=== PATIENT | female | born 1980 | race Caucasian/White ===

== ENCOUNTER 2024-11-18 03:33 | Emergency (ER) | payer OTHER ==
[2024-11-18 03:56] VITALS: RESP 18
--- NOTE | 2024-11-18 03:58 | ED ---
Abdominal Pain HPI - General Chief Complaint: Abdominal Pain Stated Complaint: ABD Pain Time Seen by Provider: 11/18/24 03:57 Source: EMS, RN notes reviewed, old records reviewed Mode of arrival: EMS Limitations: no limitations - History of Present Illness Initial Comments: This is a 44-year-old female to the ER for evaluation abdominal pain patient has severe abdominal pain here in the ER does suffer from restless leg syndrome coming in from [place] where she has been unable to take her Requip, patient is very antsy running around the room with severe anxiety and stress due to restless leg MD Complaint: abdominal pain -: days(s) Location: epigastric, suprapubic Radiation: epigastric, suprapubic Migration to: epigastric, suprapubic Severity: moderate Severity scale (1-10): 5 Quality: sharp Consistency: constant Improves With: nothing Associated Symptoms: denies other symptoms Treatments Prior to Arrival: other (0) - Related Data Allergies Allergy/AdvReac Type Severity Reaction Status Date / Time lorazepam [From Ativan] AdvReac Hallucinati Verified 11/18/24 03:41 ons prochlorperazine AdvReac Hallucinati Verified 11/18/24 03:41 [From Compazine] ons Review of Systems ROS Statement: Those systems with pertinent positive or pertinent negative responses have been documented in the HPI. ROS Other: All systems not noted in ROS Statement are negative. Past Medical History Past Surgical History: Hysterectomy General Exam General appearance: alert, in no apparent distress Head exam: Present: atraumatic, normocephalic, normal inspection Eye exam: Present: normal appearance, PERRL, EOMI. Absent: scleral icterus, conjunctival injection, periorbital swelling ENT exam: Present: normal exam, mucous membranes moist Neck exam: Present: normal inspection. Absent: tenderness, meningismus, lymphadenopathy Respiratory exam: Present: normal lung sounds bilaterally. Absent: respiratory distress, wheezes, rales, rhonchi, stridor Cardiovascular Exam: Present: regular rate, normal rhythm, normal heart sounds. Absent: systolic murmur, diastolic murmur, rubs, gallop, clicks GI/Abdominal exam: Present: soft, normal bowel sounds. Absent: distended, tende rness, guarding, rebound, rigid Extremities exam: Present: normal inspection, full ROM, normal capillary refill. Absent: tenderness, pedal edema, joint swelling, calf tenderness Back exam: Present: normal inspection Neurological exam: Present: alert, oriented X3, CN II-XII intact Psychiatric exam: Present: normal affect, normal mood Skin exam: Present: warm, dry, intact, normal color. Absent: rash Course Vital Signs 11/18/24 11/18/24 03:34 06:07 Temperature 98.5 F 98.3 F Pulse Rate 115 H 99 Respiratory 18 18 Rate Blood Pressure 177/118 142/92 O2 Sat by Pulse 97 95 Oximetry - Reevaluation(s) Reevaluation #1: 11/18/24 04:13 Medical records reviewed Reevaluation #2: 11/18/24 06:13 Patient symptoms improving Reevaluation #3: 11/18/24 06:13 Patient informed of results and questions answered Reevaluation #4: Was pt. sent in by a medical professional or institution (, PA, WAREHOUSE TECHNICIAN, urgent care, hospital, or group home...) When possible be specific @ -no Did you speak to anyone other than the patient for history (EMS, parent, family, police, friend...)? What history was obtained from this source @ -no Did you review nursing and triage notes (agree or disagree)? Why? @ -agree Are old charts reviewed (outside hosp., previous admission, EMS record, old EKG, old radiological studies, urgent care reports/EKG's, group home records)? Report findings @ -yes Differential Diagnosis (chest pain, altered mental status, abdominal pain women, abdominal pain men, vaginal bleeding, weakness, fever, dyspnea, syncope, headache, dizziness, GI bleed, back pain, seizure, CVA, palpatations, mental health, musculoskeletal)? @ -prior EKG interpreted by me (3pts min.). @ -yes X-rays interpreted by me (1pt min.). @ -yes negative for acute disease CT interpreted by me (1pt min.). @ -no U/S interpreted by me (1pt. min.). @ -no What testing was considered but not performed or refused? (CT, X-rays, U/S, labs)? Why? @ -none What meds were considered but not given or refused? Why? @ -none Did you discuss the management of the patient with other professionals (professionals i.e. , PA, WAREHOUSE TECHNICIAN, lab, RT, psych nurse, long term care social worker, children's counselor, teacher, liaison officer, nurse outreach case manager)? Give summary @ -no Was smoking cessation discussed for >3mins.? @ -no Was critical care preformed (if so, how long)? @ -no Were there social determinants of health that impacted care today? How? (Homelessness, low income, unemployed, alcoholism, drug addiction, transportation, low edu. Level, literacy, decrease access to med. care, [facility], rehab)? @ -none Was there de-escalation of care discussed even if they declined (Discuss DNR or withdrawal of care, Hospice)? DNR status @ -no What co-morbidities impacted this encounter? (DM, HTN, Smoking, COPD, CAD, Cancer, CVA, ARF, Chemo, Hep., AIDS, mental health diagnosis, sleep apnea, morbid obesity)? @ -none Was patient admitted / discharged? Hospital course, mention meds given and route, prescriptions, significant lab abnormalities, going to OR and other pertinent info. @ - Undiagnosed new problem with uncertain prognosis? @ -no Drug Therapy requiring intensive monitoring for toxicity (Heparin, Nitro, Insulin, Cardizem)? @ -no Were any procedures done? @ -no Diagnosis/symptom? @ - Acute, or Chronic, or Acute on Chronic? @ -Acute Uncomplicated (without systemic symptoms) or Complicated (systemic symptoms)? @ -Complicated Side effects of treatment? @ -no Exacerbation, Progression, or Severe Exacerbation? @ -exacerbation Poses a threat to life or bodily function? How? (Chest pain, [place], [place], pneumonia, PE, COPD, DKA, ARF, appy, cholecystitis, CVA, Diverticulitis, Homicidal, Suicidal, threat to staff... and all critical care pts) @ -yes Medical Decision Making - Medical Decision Making 44 female to ER for evaluation of abdominal pain, patient has no acute findings here in the ER and can be discharged home, symptoms do appear to be due to restless leg syndrome given Requip and can be discharged - Lab Data Result diagrams: 11/18/24 04:01 11/18/24 04:01 Lab Results 11/18/24 11/18/24 11/18/24 Range/Units 04:01 04:01 04:01 WBC 15.7 H (3.8-10.6) k/uL RBC 4.40 (3.80-5.40) m/uL Hgb 13.9 (11.4-16.0) gm/dL Hct 40.5 (34.0-46.0) % MCV 92.0 (80.0-100.0) fL MCH 31.6 (25.0-35.0) pg MCHC 34.4 (31.0-37.0) g/dL RDW 12.9 (11.5-15.5) % Plt Count 371 (150-450) k/uL MPV 7.4 Neutrophils % 68 % Lymphocytes % 21 % Monocytes % 6 % Eosinophils % 4 % Basophils % 0 % Neutrophils # 10.7 H (1.3-7.7) k/uL Lymphocytes # 3.3 (1.0-4.8) k/uL Monocytes # 0.9 (0-1.0) k/uL Eosinophils # 0.6 (0-0.7) k/uL Basophils # 0.1 (0-0.2) k/uL PT 10.5 (10.0-12.5) sec INR 0.9 (<1.2) APTT 24.0 (22.0-30.0) sec Sodium (137-145) mmol/L Potassium (3.5-5.1) mmol/L Chloride (98-107) mmol/L Carbon Dioxide (22-30) mmol/L Anion Gap mmol/L BUN (7-17) mg/dL Creatinine (0.52-1.04) mg/dL Est GFR (CKD-EPI)AfAm (>60 ml/min/1.73 sqM) Est GFR (CKD-EPI)NonAf (>60 ml/min/1.73 sqM) Glucose (74-99) mg/dL Plasma Lactic Acid Pérez (0.7-2.0) mmol/L Calcium (8.4-10.2) mg/dL Total Bilirubin (0.2-1.3) mg/dL AST (14-36) U/L ALT (4-34) U/L Alkaline Phosphatase (38-126) U/L Total Protein (6.3-8.2) g/dL Albumin (3.5-5.0) g/dL Amylase (30-110) U/L Lipase (23-300) U/L Urine Color Light Yellow Urine Appearance Cloudy H (Clear) Urine pH 5.5 (5.0-8.0) Ur Specific [place] 1.020 (1.001-1.035) Urine Protein Negative (Negative) Urine Glucose (UA) Negative (Negative) Urine Ketones Negative (Negative) Urine Blood Negative (Negative) Urine Nitrite Negative (Negative) Urine Bilirubin Negative (Negative) Urine Urobilinogen <2.0 (<2.0) mg/dL Ur Leukocyte Esterase Negative (Negative) Urine RBC 2 (0-5) /hpf Urine WBC 2 (0-5) /hpf Ur Squamous Epith Cells 11 H (0-4) /hpf Urine Bacteria Rare H (None) /hpf Urine Mucus Few H (None) /hpf 11/18/24 11/18/24 Range/Units 04:01 04:01 WBC (3.8-10.6) k/uL RBC (3.80-5.40) m/uL Hgb (11.4-16.0) gm/dL Hct (34.0-46.0) % MCV (80.0-100.0) fL MCH (25.0-35.0) pg MCHC (31.0-37.0) g/dL RDW (11.5-15.5) % Plt Count (150-450) k/uL MPV Neutrophils % % Lymphocytes % % Monocytes % % Eosinophils % % Basophils % % Neutrophils # (1.3-7.7) k/uL Lymphocytes # (1.0-4.8) k/uL Monocytes # (0-1.0) k/uL Eosinophils # (0-0.7) k/uL Basophils # (0-0.2) k/uL PT (10.0-12.5) sec INR (<1.2) APTT (22.0-30.0) sec Sodium 137 (137-145) mmol/L Potassium 4.0 (3.5-5.1) mmol/L Chloride 113 H (98-107) mmol/L Carbon Dioxide 18 L (22-30) mmol/L Anion Gap 6 mmol/L BUN 18 H (7-17) mg/dL Creatinine 0.70 (0.52-1.04) mg/dL Est GFR (CKD-EPI)AfAm >90 (>60 ml/min/1.73 sqM) Est GFR (CKD-EPI)NonAf >90 (>60 ml/min/1.73 sqM) Glucose 124 H (74-99) mg/dL Plasma Lactic Acid Pérez 1.5 (0.7-2.0) mmol/L Calcium 9.8 (8.4-10.2) mg/dL Total Bilirubin 1.0 (0.2-1.3) mg/dL AST 25 (14-36) U/L ALT 26 (4-34) U/L Alkaline Phosphatase 65 (38-126) U/L Total Protein 7.4 (6.3-8.2) g/dL Albumin 4.5 (3.5-5.0) g/dL Amylase 39 (30-110) U/L Lipase 81 (23-300) U/L Urine Color Urine Appearance (Clear) Urine pH (5.0-8.0) Ur Specific [place] (1.001-1.035) Urine Protein (Negative) Urine Glucose (UA) (Negative) Urine Ketones (Negative) Urine Blood (Negative) Urine Nitrite (Negative) Urine Bilirubin (Negative) Urine Urobilinogen (<2.0) mg/dL Ur Leukocyte Esterase (Negative) Urine RBC (0-5) /hpf Urine WBC (0-5) /hpf Ur Squamous Epith Cells (0-4) /hpf Urine Bacteria (None) /hpf Urine Mucus (None) /hpf - Radiology Data Radiology results: report reviewed (CT abdomen pelvis negative for acute disease), image reviewed Disposition Clinical Impression: Abdominal pain, Anxiety, Restless legs Disposition: HOME SELF-CARE Condition: Good Instructions (If sedation given, give patient instructions): Abdominal Pain (ED) Is patient prescribed a controlled substance at d/c from ED?: No Referrals: None,Stated [Primary Care Provider] - 1-2 days
[2024-11-18] MEDS: SODIUM CHLORIDE 0.9% 1,000 ML IV STA (04:20)
[2024-11-18] MEDS: ONDANSETRON 4 MG/2 ML VIAL IVP STA (04:23)
[2024-11-18 04:24] LABS: Basophils # (A) 0.1 k/uL (0-0.2); Basophils % (A) 0 %; Eosinophils # (A) 0.6 k/uL (0-0.7); Eosinophils % (A) 4 %; HCT 40.5 % (34.0-46.0); HGB 13.9 gm/dL (11.4-16.0); Lymphocytes # (A) 3.3 k/uL (1.0-4.8); Lymphocytes % (A) 21 %; MCH 31.6 pg (25.0-35.0); MCHC 34.4 g/dL (31.0-37.0); Mean Platelet Volume 7.4; Monocytes # (A) 0.9 k/uL (0-1.0); Monocytes % (A) 6 %; Neutrophils # (A) 10.7 k/uL (1.3-7.7); Neutrophils % (A) 68 %; Platelet Count 371 k/uL (150-450); RDW 12.9 % (11.5-15.5); WBC 15.7 k/uL (3.8-10.6)
[2024-11-18 04:27] LABS: ALT 26 U/L (4-34); AST 25 U/L (14-36); African American GFR (CKD) >90 (>60 ml/min/1.73 sqM); Albumin 4.5 g/dL (3.5-5.0); Alkaline Phosphatase 65 U/L (38-126); Amylase 39 U/L (30-110); Anion Gap 6 mmol/L; Blood Urea Nitrogen 18 mg/dL (7-17); Calcium 9.8 mg/dL (8.4-10.2); Carbon Dioxide 18 mmol/L (22-30); Chloride 113 mmol/L (98-107); Glucose 124 mg/dL (74-99); Lipase 81 U/L (23-300); Non-African American GFR(CKD) >90 (>60 ml/min/1.73 sqM); Sodium 137 mmol/L (137-145); Total Protein 7.4 g/dL (6.3-8.2)
[2024-11-18] MEDS: MORPHINE SULFATE 4 MG/ML SYRINGE IVP STA (04:35)
[2024-11-18 04:38] LABS: INR 0.9 (<1.2); Prothrombin Time 10.5 sec (10.0-12.5)
[2024-11-18] MEDS: diphenhydrAMINE 50 MG/ML 1 ML VIAL IVP STA (04:51)
[2024-11-18 05:01] LABS: Appearance,Urine Cloudy (Clear); Bacteria,Urine Rare /hpf; Bilirubin,Urine Negative (Negative); Blood,Urine Negative (Negative); Color,Urine Light Yellow; Glucose,Urine (UA) Negative (Negative); Ketones,Urine Negative (Negative); Leukocyte Esterase,Urine Negative (Negative); Mucus,Urine Few /hpf; Nitrite,Urine Negative (Negative); PH, Urine 5.5 (5.0-8.0); Protein,Urine Negative (Negative); RBC,Urine 2 /hpf (0-5); Squamous Epithelial Cell,Urine 11 /hpf (0-4); Urobilinogen,Urine <2.0 mg/dL (<2.0); WBC,Urine 2 /hpf (0-5)
[2024-11-18 06:13] VITALS: BP 142/92; PULSE 99; TEMP 98.3
--- NOTE | 2024-11-18 07:35 | CT ---
EXAMINATION TYPE: CT abdomen pelvis wo con DATE OF EXAM: 11/18/2024 4:17 AM COMPARISON: None. CLINICAL INDICATION: Female, 44 years old with history of abdominal pain, Patient presents to ED via EMS with complaints of abdominal pain. Per EMS patient has an increase in abdominal pain when twitchi ng. Patient states she has restless leg/arm syndrome. Complaints of nausea. Patient states she has SO B when standing or walking. No complains of chest pain. Patient is A/Ox4., TECHNIQUE: Contiguous axial scanning of the abdomen and pelvis without IV contrast. Coronal and sagit juaquin reconstructions performed. CT DLP: 2530.5 mGycm. Automated exposure control for dose reduction was used. FINDINGS: The heart is normal size without pericardial effusion. Some minimal strandy atelectasis in the lower lungs. No pleural effusion. Some asymmetric soft tissue swelling involving the right flank and underlying chest wall/abdominal wa ll musculature, for example, axial image 47. Liver measures larger at 25.6 cm, possibly due to the presence of a Janice's lobe. Gallbladder and pancreas show no gross abnormality by noncontrast CT. Spleen mildly enlarged at 14.4 cm. Mild diffuse thickening of the right adrenal gland without discrete nodularity. There is low density nodularity in the left adrenal gland measuring up to 1.4 cm suggesting underlying lipid rich adrenal adenoma. A few punctate nonobstructive left renal stones are present measuring up to 4 mm. No hydronephrosis o n either side. No dilated small bowel, free fluid, or free air. No mesenteric or retroperitoneal lymphadenopathy. Mild overall stool burden. No pericolonic inflammatory change. Short segment of a normal-appearing ap pendix are noted. Bladder is collapsed. Uterus anteverted. Both ovaries are visualized with a dominant follicle or func tional cyst on either side measuring up to 2.6 cm. Small pelvic phleboliths. No abnormal fluid collec tion in the pelvis or pelvic lymphadenopathy. Bones: Mild degenerative change of the hips. Moderate spondylotic change throughout the visualized lo wer thoracic and lumbar spine. IMPRESSION: 1. Subcutaneous soft tissue swelling along the right flank and underlying chest wall/abdominal wall musculature. Correlate as to possible etiologies such as cellulitis/myositis. If there was injury her e, bruising and some poorly defined intramuscular hematoma is also a possibility. 2. Low-density nodularity left adrenal gland measuring up to 1.4 cm suggestive of an underlying lipi d rich adrenal adenoma. 3. Mild splenomegaly at 14.4 cm. Clinically correlate. 4. Punctate nonobstructive left renal stones. [facility], , 11/18/2024 7:33 AM
== END 2024-11-18 08:43 | disposition home or self-care (01) ==
LOC: EC 03:33
DX: G25.81 Restless legs syndrome (principal); R10.9 Unspecified abdominal pain; F41.9 Anxiety disorder, unspecified; Z88.8 Allergy status to other drugs, medicaments and biological substances
CPT/HCPCS: 36415; 80053; 82150; 83605; 83690; 85025; 85610; 85730; 81001; 74176; 99284; 96374; 96375; 96361; J1200; J2405

== ENCOUNTER 2024-12-04 09:58 | Observation (INO) | payer OTHER ==
--- NOTE | 2024-12-04 10:24 | ED ---
SOB HPI - General Chief Complaint: Shortness of Breath Stated Complaint: SOB,Congestion Time Seen by Provider: 12/04/24 10:14 Source: patient, RN notes reviewed Mode of arrival: ambulatory Limitations: no limitations - History of Present Illness Initial Comments: This is a 44-year-old female who presents to the emergency department for coughing, congestion, and shortness of breath. States that it has been going on for about a week. She finished a Z-Pablo and initially felt better, however she states that symptoms then returned and now seem to be getting worse. She is currently at [facility] and they have been giving her breathing treatments, however she is not finding them particularly beneficial. States that she occasionally presents like an asthmatic when she gets sick, but is not on any regular treatments for it. States that her oxygen saturation is ranging between 90 to 93%. Denies any chest pain, but states that her ribs hurt from all the coughing. Cough is described as productive. Patient is struggling to catch her breath just in conversation. MD Complaint: shortness of breath, cough - Related Data Home Medications Medication Instructions Recorded Confirmed Acetaminophen Tab [Tylenol] 650 mg PO Q4H PRN 12/04/24 12/04/24 Albuterol Nebulized [Ventolin 2.5 mg INHALATION RT-Q4H PRN 12/04/24 12/04/24 Nebulized] Calcium Phos/D3/Magnesium/Zinc 1 tab PO TID PRN 12/04/24 12/04/24 [Cjrcyzb-Hiq-Bwnm-Vitamin D3] Chlorpheniramine Maleate 4 mg PO Q4H PRN 12/04/24 12/04/24 [Chlor-Trimeton] Ibuprofen [Motrin Ib] 600 mg PO Q6H PRN 12/04/24 12/04/24 Icy Hot 1 applic TOPICAL DIRECTED PRN 12/04/24 12/04/24 Melatonin 10 mg PO HS 12/04/24 12/04/24 Mirtazapine [Remeron] 15 mg PO HS 12/04/24 12/04/24 Multivitamins, Thera [Multivitamin 1 tab PO DAILY 12/04/24 12/04/24 (formulary)] Thiamine [Vitamin B-1] 100 mg PO DAILY 12/04/24 12/04/24 amLODIPine [Norvasc] 5 mg PO DAILY 12/04/24 12/04/24 guaiFENesin [guaiFENesin Oral 10 mg PO Q4H PRN 12/04/24 12/04/24 Solution] ondansetron HCL [Zofran] 8 mg PO Q6H PRN 12/04/24 12/04/24 rOPINIRole HCL [Requip] 5 mg PO HS 12/04/24 12/04/24 Allergies Allergy/AdvReac Type Severity Reaction Status Date / Time lorazepam [From Ativan] AdvReac Hallucinations Verified 12/04/24 14:49 & aggressive prochlorperazine AdvReac Hallucinations Verified 12/04/24 14:49 [From Compazine] & aggressive TIDE & DIAL Allergy Rash/Hives Uncoded 12/04/24 15:02 Review of Systems ROS Statement: Those systems with pertinent positive or pertinent negative responses have been documented in the HPI. ROS Other: All systems not noted in ROS Statement are negative. Past Medical History Past Medical History: Rheumatoid Arthritis (RA) Additional Past Medical History / Comment(s): RLS. Spherotosis. Migraines. Past Surgical History: Hysterectomy Smoking Status: Current every day smoker Past Alcohol Use History: Rare Past Drug Use History: Cocaine, Heroin, Marijuana General Exam Limitations: no limitations General appearance: alert, in distress Head exam: Present: atraumatic, normocephalic, normal inspection Respiratory exam: Present: wheezes, decreased breath sounds, prolonged expiratory Cardiovascular Exam: Present: normal rhythm, tachycardia Neurological exam: Present: alert, oriented X3, CN II-XII intact Psychiatric exam: Present: normal affect, normal mood Skin exam: Present: warm, dry, intact, normal color. Absent: rash Course Vital Signs 12/04/24 12/04/24 12/04/24 10:07 11:45 11:55 Temperature 98.1 F Pulse Rate 104 H 84 86 Respiratory 20 Rate Blood Pressure 188/111 O2 Sat by Pulse 94 L Oximetry Medical Decision Making - Medical Decision Making This is a 44-year-old female who presents to the emergency department for shortness of breath and coughing. Was pt. sent in by a medical professional or institution? @ -[facility] Did you speak to anyone other than the patient for history? @ -No Did you review nursing and triage notes? @ -Yes, and I agree, it is accurate with regards to the patient's symptoms. Were old charts reviewed? @ -No Differential Diagnosis? @ -Differential Dyspnea: Coronary syndrome, arrhythmia, tamponade, asthma, COPD, pulmonary embolism, pneumonia, pneumothorax, pulmonary effusion, anaphylaxis, diabetic ketoacidosis, flailed chest, pulmonary contusion, diaphragmatic rupture, anemia, neuromuscular, this is not meant to be an all-inclusive list. EKG interpreted by me (3pts min.)? @ -EKG interpreted by me demonstrating the following: Sinus rhythm. Ventricular rate 96 bpm, TN interval 160 ms, QRS duration 90 ms, QTc 395 ms. X-rays interpreted by me (1pt min.)? @ -Chest x-ray obtained, my interpretation identifies no localized consolidations or infiltrates. CT interpreted by me (1pt min.)? @ -CTA of the chest obtained. My interpretation identifies no evidence of a pulmonary embolus. U/S interpreted by me (1pt. min.)? @ -Not obtained What testing was considered but not performed? (CT, X-rays, U/S, labs)? Why? @ -None What meds were considered but not given? Why? @ -None Did you discuss the management of the patient with other professionals? @ -Yes, Dr. Blanco, who accepts the patient for admission. Did you reconcile home meds? @ -Yes Was smoking cessation discussed for >3mins.? @ -I discussed smoking cessation for greater than 3 minutes. The risk of smoking were discussed with the patient including but not limited to risks of cancer, stroke, coronary artery disease and COPD. Also discussed with patient were multiple methods of quitting smoking. Lastly we discussed the financial cost of smoking. Was critical care preformed (if so, how long)? @ -No Were there social determinants of health that impacted care today? How? (Homelessness, low income, unemployed, alcoholism, drug addiction, transportation, low edu. Level, literacy, decrease access to med. care, [facility], rehab)? @ -No Was there de-escalation of care discussed even if they declined? (Discuss DNR or withdrawal of care, Hospice)? @ -No What co-morbidities impacted this encounter? (DM, HTN, Smoking, COPD, CAD, Cancer, CVA, Hep., AIDS, mental health diagnosis, sleep apnea, morbid obesity)? @ -Smoking Was patient admitted / discharged? @ -Admitted. Lab work demonstrates mild leukocytosis with a white blood cell count of 13.1. D-dimer elevated at 0.79. Lab work otherwise unremarkable. COVID, influenza, and RSV testing negative. Chest x-ray reveals no acute process. CTA of the chest obtained due to patient's symptoms with elevated D- dimer. No acute process was identified. Patient was very wheezy with decreased aeration on exam. She was given a breathing treatment with only minor relief in symptoms. Ambulatory pulse ox obtained and she did drop down to 89%. She also became increasingly tachycardic up into the 130s to 140s. When the patient fell asleep she also became hypoxic at around 84 to 85%. Given the hypoxic episodes with tachycardia and poor lung sounds, patient was admitted to medicine for re active airway disease. Order placed for regular DuoNebs and Solu-Medrol. Consult was placed for pulmonology. Case discussed with ED attending Dr. Holder. Undiagnosed new problem with uncertain prognosis? @ -None Drug Therapy requiring intensive monitoring for toxicity (Heparin, Nitro, Insulin, Cardizem)? @ -None Were any procedures done? @ -None Diagnosis/symptom? @ -Reactive airway disease Acute, or Chronic, or Acute on Chronic? @ -Acute Uncomplicated (without systemic symptoms) or Complicated (systemic symptoms)? @ -Uncomplicated Side effects of treatment? @ -None Exacerbation, Progression, or Severe Exacerbation] @ -Not applicable Poses a threat to life or bodily function? @ -Yes, can lead to further respiratory compromise - Lab Data Result diagrams: 12/04/24 10:32 12/04/24 10:32 Lab Results 12/04/24 12/04/24 12/04/24 Range/Units 10:32 10:32 10:32 WBC 13.1 H (3.8-10.6) k/uL RBC 4.61 (3.80-5.40) m/uL Hgb 14.0 (11.4-16.0) gm/dL Hct 41.8 (34.0-46.0) % MCV 90.8 (80.0-100.0) fL MCH 30.3 (25.0-35.0) pg MCHC 33.4 (31.0-37.0) g/dL RDW 12.7 (11.5-15.5) % Plt Count 306 (150-450) k/uL MPV 7.3 Neutrophils % 75 % Lymphocytes % 17 % Monocytes % 4 % Eosinophils % 3 % Basophils % 1 % Neutrophils # 9.8 H (1.3-7.7) k/uL Lymphocytes # 2.2 (1.0-4.8) k/uL Monocytes # 0.5 (0-1.0) k/uL Eosinophils # 0.4 (0-0.7) k/uL Basophils # 0.1 (0-0.2) k/uL PT 10.4 (10.0-12.5) sec INR 0.9 (<1.2) APTT 25.1 (22.0-30.0) sec D-Dimer 0.79 H (<0.60) mg/L FEU Sodium 140 (137-145) mmol/L Potassium 4.2 (3.5-5.1) mmol/L Chloride 105 (98-107) mmol/L Carbon Dioxide 25 (22-30) mmol/L Anion Gap 10 mmol/L BUN 11 (7-17) mg/dL Creatinine 0.60 (0.52-1.04) mg/dL Est GFR (CKD-EPI)AfAm >90 (>60 ml/min/1.73 sqM) Est GFR (CKD-EPI)NonAf >90 (>60 ml/min/1.73 sqM) Glucose 124 H (74-99) mg/dL Plasma Lactic Acid Pérez (0.7-2.0) mmol/L Calcium 9.7 (8.4-10.2) mg/dL Magnesium 1.9 (1.6-2.3) mg/dL Total Bilirubin 0.7 (0.2-1.3) mg/dL AST 27 (14-36) U/L ALT 27 (4-34) U/L Alkaline Phosphatase 73 (38-126) U/L Troponin I (0.000-0.034) ng/mL C-Reactive Protein (<1.0) mg/dL Total Protein 7.4 (6.3-8.2) g/dL Albumin 4.4 (3.5-5.0) g/dL HCG, Qual Influenza Type A (PCR) (Not Detectd) Influenza Type B (PCR) (Not Detectd) RSV (PCR) (Not Detectd) SARS-CoV-2 (PCR) (Not Detectd) 12/04/24 12/04/24 12/04/24 Range/Units 10:32 10:32 10:32 WBC (3.8-10.6) k/uL RBC (3.80-5.40) m/uL Hgb (11.4-16.0) gm/dL Hct (34.0-46.0) % MCV (80.0-100.0) fL MCH (25.0-35.0) pg MCHC (31.0-37.0) g/dL RDW (11.5-15.5) % Plt Count (150-450) k/uL MPV Neutrophils % % Lymphocytes % % Monocytes % % Eosinophils % % Basophils % % Neutrophils # (1.3-7.7) k/uL Lymphocytes # (1.0-4.8) k/uL Monocytes # (0-1.0) k/uL Eosinophils # (0-0.7) k/uL Basophils # (0-0.2) k/uL PT (10.0-12.5) sec INR (<1.2) APTT (22.0-30.0) sec D-Dimer (<0.60) mg/L FEU Sodium (137-145) mmol/L Potassium (3.5-5.1) mmol/L Chloride (98-107) mmol/L Carbon Dioxide (22-30) mmol/L Anion Gap mmol/L BUN (7-17) mg/dL Creatinine (0.52-1.04) mg/dL Est GFR (CKD-EPI)AfAm (>60 ml/min/1.73 sqM) Est GFR (CKD-EPI)NonAf (>60 ml/min/1.73 sqM) Glucose (74-99) mg/dL Plasma Lactic Acid Pérez 1.5 (0.7-2.0) mmol/L Calcium (8.4-10.2) mg/dL Magnesium (1.6-2.3) mg/dL Total Bilirubin (0.2-1.3) mg/dL AST (14-36) U/L ALT (4-34) U/L Alkaline Phosphatase (38-126) U/L Troponin I <0.012 (0.000-0.034) ng/mL C-Reactive Protein (<1.0) mg/dL Total Protein (6.3-8.2) g/dL Albumin (3.5-5.0) g/dL HCG, Qual Influenza Type A (PCR) Not Detected (Not Detectd) Influenza Type B (PCR) Not Detected (Not Detectd) RSV (PCR) Not Detected (Not Detectd) SARS-CoV-2 (PCR) Not Detected (Not Detectd) 12/04/24 Range/Units 10:32 WBC (3.8-10.6) k/uL RBC (3.80-5.40) m/uL Hgb (11.4-16.0) gm/dL Hct (34.0-46.0) % MCV (80.0-100.0) fL MCH (25.0-35.0) pg MCHC (31.0-37.0) g/dL RDW (11.5-15.5) % Plt Count (150-450) k/uL MPV Neutrophils % % Lymphocytes % % Monocytes % % Eosinophils % % Basophils % % Neutrophils # (1.3-7.7) k/uL Lymphocytes # (1.0-4.8) k/uL Monocytes # (0-1.0) k/uL Eosinophils # (0-0.7) k/uL Basophils # (0-0.2) k/uL PT (10.0-12.5) sec INR (<1.2) APTT (22.0-30.0) sec D-Dimer (<0.60) mg/L FEU Sodium (137-145) mmol/L Potassium (3.5-5.1) mmol/L Chloride (98-107) mmol/L Carbon Dioxide (22-30) mmol/L Anion Gap mmol/L BUN (7-17) mg/dL Creatinine (0.52-1.04) mg/dL Est GFR (CKD-EPI)AfAm (>60 ml/min/1.73 sqM) Est GFR (CKD-EPI)NonAf (>60 ml/min/1.73 sqM) Glucose (74-99) mg/dL Plasma Lactic Acid Pérez (0.7-2.0) mmol/L Calcium (8.4-10.2) mg/dL Magnesium (1.6-2.3) mg/dL Total Bilirubin (0.2-1.3) mg/dL AST (14-36) U/L ALT (4-34) U/L Alkaline Phosphatase (38-126) U/L Troponin I (0.000-0.034) ng/mL C-Reactive Protein 1.7 H (<1.0) mg/dL Total Protein (6.3-8.2) g/dL Albumin (3.5-5.0) g/dL HCG, Qual Not Detected Influenza Type A (PCR) (Not Detectd) Influenza Type B (PCR) (Not Detectd) RSV (PCR) (Not Detectd) SARS-CoV-2 (PCR) (Not Detectd) - Radiology Data Radiology results: report reviewed, image reviewed Disposition Clinical Impression: Reactive airway disease with wheezing, Nicotine dependence Disposition: ADMITTED IP TO THIS HOSP
[2024-12-04] MEDS: methylPREDNISolone SOD SUCCI 125 MG/2 ML VIAL IV STA (10:40)
[2024-12-04] MEDS: KETOROLAC 15 MG/ML 1 ML VIAL IVP STA (10:41)
[2024-12-04] MEDS: SODIUM CHLORIDE 0.9% 1,000 ML IV STA (10:42)
[2024-12-04 10:44] LABS: Basophils # (A) 0.1 k/uL (0-0.2); Basophils % (A) 1 %; Eosinophils # (A) 0.4 k/uL (0-0.7); Eosinophils % (A) 3 %; HCT 41.8 % (34.0-46.0); Lymphocytes # (A) 2.2 k/uL (1.0-4.8); Lymphocytes % (A) 17 %; MCH 30.3 pg (25.0-35.0); MCHC 33.4 g/dL (31.0-37.0); MCV 90.8 fL (80.0-100.0); Mean Platelet Volume 7.3; Monocytes # (A) 0.5 k/uL (0-1.0); Monocytes % (A) 4 %; Neutrophils # (A) 9.8 k/uL (1.3-7.7); Neutrophils % (A) 75 %; Platelet Count 306 k/uL (150-450); RBC 4.61 m/uL (3.80-5.40); RDW 12.7 % (11.5-15.5); WBC 13.1 k/uL (3.8-10.6)
[2024-12-04 11:06] LABS: INR 0.9 (<1.2); Partial Thromboplastin Time 25.1 sec (22.0-30.0); Prothrombin Time 10.4 sec (10.0-12.5)
--- NOTE | 2024-12-04 11:09 | XR ---
EXAMINATION TYPE: XR chest 2V DATE OF EXAM: 12/04/2024 10:51 AM COMPARISON: None. CLINICAL INDICATION: Female, 44 years old with history of difficulty breathing, TECHNIQUE: Frontal and lateral views of the chest are obtained. FINDINGS: There is no focal air space opacity, pleural effusion, or pneumothorax seen. The cardiac silhouette size is within normal limits. The osseous structures are intact. IMPRESSION: No acute cardiopulmonary process. [facility], , 12/04/2024 11:07 AM
[2024-12-04 11:16] LABS: ALT 27 U/L (4-34); AST 27 U/L (14-36); African American GFR (CKD) >90 (>60 ml/min/1.73 sqM); Albumin 4.4 g/dL (3.5-5.0); Alkaline Phosphatase 73 U/L (38-126); Anion Gap 10 mmol/L; Blood Urea Nitrogen 11 mg/dL (7-17); Calcium 9.7 mg/dL (8.4-10.2); Carbon Dioxide 25 mmol/L (22-30); Chloride 105 mmol/L (98-107); Glucose 124 mg/dL (74-99); Magnesium 1.9 mg/dL (1.6-2.3); Non-African American GFR(CKD) >90 (>60 ml/min/1.73 sqM); Potassium 4.2 mmol/L (3.5-5.1); Sodium 140 mmol/L (137-145); Total Bilirubin 0.7 mg/dL (0.2-1.3); Total Protein 7.4 g/dL (6.3-8.2)
[2024-12-04 11:27] LABS: Influenza A Not Detected (Not Detectd); Influenza B Not Detected (Not Detectd); RSV Not Detected (Not Detectd)
[2024-12-04] MEDS: guaiFENesin-DM 600/30MG 1 EACH TAB.ER.12H PO STA (11:43)
[2024-12-04] MEDS: IPRATROPIUM-ALBUTEROL 3 ML NEB INHALATION STA ×2 (11:44→15:16)
--- NOTE | 2024-12-04 12:18 | CT ---
EXAMINATION TYPE: CT chest angio for PE DATE OF EXAM: 12/04/2024 COMPARISON: NONE HISTORY: joaquín/cough CT DLP: 925.9 mGycm. Automated Exposure Control for Dose Reduction was Utilized. CONTRAST: CTA scan of the thorax is performed with IV Contrast, patient injected with 100ml mL of Isovue 370, p ulmonary embolism protocol. MIP Images are created on CT scanner and reviewed. FINDINGS: LUNGS: Respiratory motion in the lower lungs makes evaluation suboptimal particularly for subcentimet er nodules. Mild linear scarring and/or atelectasis in both lower lungs is present. No suspicious foc al consolidation. No pleural effusion or pneumothorax is seen bilaterally. MEDIASTINUM: Suboptimal study with most dense contrast in the SVC. No CT evidence for acute central p ulmonary embolism. Cannot entirely exclude peripheral acute pulmonary embolism on this study. No aneu rysm or dissection in the thoracic aorta. Prominent but subcentimeter mediastinal and bilateral hilar lymph nodes. No cardiomegaly or pericardial effusion OTHER: Multilevel spurring in the spine. IMPRESSION: Suboptimal study without acute central pulmonary embolism. Canal exclude peripheral segme ntal and subsegmental PE on this study. No suspicious acute pulmonary process noted. [facility], , 12/04/2024 12:16 PM
[2024-12-04] MEDS: TERBUTALINE 1 MG/ML VIAL SQ STA (12:49)
[2024-12-04] MEDS ORDERED: IBUPROFEN 400 MG TAB PO PRN (14:12)
[2024-12-04] MEDS ORDERED: ONDANSETRON 4 MG/2 ML VIAL IVP PRN (14:12)
[2024-12-04] MEDS ORDERED: NALOXONE 0.4 MG/ML 1 ML VIAL IV PRN (14:12)
[2024-12-04] MEDS ORDERED: ACETAMINOPHEN TAB 325 MG TAB PO PRN ×2 (14:12→15:09)
[2024-12-04] MEDS ORDERED: KETOROLAC 15 MG/ML 1 ML VIAL IVP PRN (14:12)
[2024-12-04] MEDS ORDERED: IPRATROPIUM-ALBUTEROL 3 ML NEB INHALATION PRN (14:13)
[2024-12-04 15:00] LABS: C Reactive Protein 1.7 mg/dL (<1.0)
[2024-12-04] MEDS ORDERED: NON FORMULARY DRUG (Calcium Phos/D3/Magnesium/Zinc [Calcium-Mag-Zinc-Vitamin D3] 1 EACH Ta PO PRN (15:09)
[2024-12-04] MEDS ORDERED: guaiFENesin SYRUP 100MG/5ML 200 MG/10 ML CUP PO PRN (15:09)
[2024-12-04] MEDS ORDERED: ONDANSETRON 4 MG TAB PO PRN (15:09)
[2024-12-04] MEDS ORDERED: diphenhydrAMINE 25 MG CAP PO PRN (15:09)
[2024-12-04] MEDS ORDERED: IBUPROFEN 600 MG TAB PO PRN (15:09)
[2024-12-04] MEDS: SODIUM CHLORIDE 0.9% 1,000 ML IV SCH (15:17)
[2024-12-04 15:24] LABS: HCG,Qualitative Serum Not Detected
[2024-12-04] MEDS: NICOTINE 21MG/24HR PATCH TRANSDERM STA (15:30)
[2024-12-04] MEDS: IPRATROPIUM-ALBUTEROL 3 ML NEB INHALATION SCH (17:09)
[2024-12-04] MEDS: cloNIDine HCL 0.2 MG TAB PO STA (17:44)
[2024-12-04] MEDS: methylPREDNISolone SOD SUCCI 125 MG/2 ML VIAL IV SCH (17:46)
[2024-12-04] MEDS ORDERED: METHYL SALICYLATE-MENTHOL OINT (3 OZ TUBE) TOPICAL PRN (18:00)
--- NOTE | 2024-12-04 19:55 | P.HPIM ---
History of Present Illness Patient is a pleasant 44 years old female who was sent from [facility] hide pneumonia Patient was sitting in bed stating that while she was at [facility] she felt sick and she received pneumonia treatment there with Z-Pablo which was on by Sunday and Sunday she was feeling better, however on Sunday she relapsed and she became worse, more short of breath that even breath treatment was not working for her and she was coughing more. She has runny nose, little headache. Sometimes coughs to the degree that she vomits after that Her cough is so bad that it hurts her upper abdomen with rib cage hurting She has little diarrhea but walking fine She smokes 1 pack/day and she was counseled to quit and states she will quit the last 7 days Rarely she drinks alcohol Patient states that she used to use cocaine and she quit 8 months ago. But states that she relapsed lately and that is why she went to [facility] She states she does not have PCP but recently she made an appointment with primary doctor connected to [facility] that intends to follow-up with upon discharge Patient is afebrile hemodynamically stable both blood pressure and heart rate on the high side with a blood pressure 188/111 and slightly tachypneic heart rate goes up sometimes 120 She has mild leukocytosis with 13.1 D-dimer was mildly elevated at 7.9 EKG sinus rhythm at [address]-T changes CT of the chest is negative for acute pulmonary embolism but was there was limited quality Chest x-ray showed no acute cardiopulmonary process Review of Systems Review of systems CONSTITUTIONAL: No fever, no malaise, no fatigue. HEENT: No recent visual problems or hearing problems. Denied any sore throat. CARDIOVASCULAR: No orthopnea, PND, no palpitations, no syncope. PULMONARY: No chest wall tenderness, no hemoptysis. GASTROINTESTINAL: No diarrhea, no nausea, no vomiting, no abdominal pain. Normoactive bowel sounds. NEUROLOGICAL: No headaches, no weakness, no numbness. HEMATOLOGICAL: Denies any bleeding or petechiae. GENITOURINARY: Denies any burning micturition, frequency, or urgency. MUSCULOSKELETAL/RHEUMATOLOGICAL: Denies any joint pain, swelling, or any muscle pain. ENDOCRINE: Denies any polyuria or polydipsia. Past Medical History Past Medical History: Rheumatoid Arthritis (RA) Additional Past Medical History / Comment(s): RLS. Spherotosis. Migraines. Past Surgical History: Hysterectomy Smoking Status: Current every day smoker Past Alcohol Use History: Rare Past Drug Use History: Cocaine, Heroin, Marijuana Medications and Allergies Home Medications Medication Instructions Recorded Confirmed Type Acetaminophen Tab [Tylenol] 650 mg PO Q4H PRN 12/04/24 12/04/24 History Albuterol Nebulized [Ventolin 2.5 mg INHALATION RT-Q4H PRN 12/04/24 12/04/24 History Nebulized] Calcium Phos/D3/Magnesium/Zinc 1 tab PO TID PRN 12/04/24 12/04/24 History [Xtqsszq-Vgn-Jksf-Vitamin D3] Chlorpheniramine Maleate 4 mg PO Q4H PRN 12/04/24 12/04/24 History [Chlor-Trimeton] Ibuprofen [Motrin Ib] 600 mg PO Q6H PRN 12/04/24 12/04/24 History Icy Hot 1 applic TOPICAL DIRECTED PRN 12/04/24 12/04/24 History Melatonin 10 mg PO HS 12/04/24 12/04/24 History Mirtazapine [Remeron] 15 mg PO HS 12/04/24 12/04/24 History Multivitamins, Thera [Multivitamin 1 tab PO DAILY 12/04/24 12/04/24 History (formulary)] Thiamine [Vitamin B-1] 100 mg PO DAILY 12/04/24 12/04/24 History amLODIPine [Norvasc] 5 mg PO DAILY 12/04/24 12/04/24 History guaiFENesin [guaiFENesin Oral 10 mg PO Q4H PRN 12/04/24 12/04/24 History Solution] ondansetron HCL [Zofran] 8 mg PO Q6H PRN 12/04/24 12/04/24 History rOPINIRole HCL [Requip] 5 mg PO BID 12/04/24 12/04/24 History Allergies Allergy/AdvReac Type Severity Reaction Status Date / Time lorazepam [From Ativan] AdvReac Hallucinations Verified 12/04/24 14:49 & aggressive prochlorperazine AdvReac Hallucinations Verified 12/04/24 14:49 [From Compazine] & aggressive TIDE & DIAL Allergy Rash/Hives Uncoded 12/04/24 15:02 Physical Exam Vitals: Vital Signs Temp Pulse Resp BP Pulse Ox 12/04/24 17:50 186/92 12/04/24 17:22 120 H 12/04/24 17:11 120 H 12/04/24 17:02 101 H 18 199/92 12/04/24 16:53 113 H 26 H 199/98 94 L 12/04/24 11:55 86 12/04/24 11:45 84 12/04/24 10:07 98.1 F 104 H 20 188/111 94 L Intake and Output 12/04/24 12/04/24 12/04/24 06:59 14:59 22:59 Other: Weight 145.15 kg GENERAL: The patient is alert and oriented x3, not in any acute distress. Well developed, well nourished HEENT: Pupils are round and equally reacting to light. EOMI. No scleral icterus. No conjunctival pallor. Normocephalic, atraumatic. No pharyngeal erythema. No thyromegaly. CARDIOVASCULAR: S1 and S2 present. No murmurs, rubs, or gallops. -PULMONARY: Chest is clear to auscultation, no wheezing , no crackles. . Obese. Exam is limited with distant breath sounds ABDOMEN: Soft, nontender, nondistended, normoactive bowel sounds. No palpable organomegaly. MUSCULOSKELETAL: No joint swelling or deformity. EXTREMITIES: No cyanosis, clubbing, or pedal edema. NEUROLOGICAL: Gross neurological examination did not reveal any focal deficits. SKIN: No rashes. no petechiae. Results CBC & Chem 7: 12/04/24 10:32 12/04/24 10:32 Labs: Abnormal Lab Results - Last 24 Hours (Table) 12/04/24 12/04/24 12/04/24 Range/Units 10:32 10:32 10:32 WBC 13.1 H (3.8-10.6) k/uL Neutrophils # 9.8 H (1.3-7.7) k/uL D-Dimer 0.79 H (<0.60) mg/L FEU Glucose 124 H (74-99) mg/dL C-Reactive Protein (<1.0) mg/dL 12/04/24 Range/Units 10:32 WBC (3.8-10.6) k/uL Neutrophils # (1.3-7.7) k/uL D-Dimer (<0.60) mg/L FEU Glucose (74-99) mg/dL C-Reactive Protein 1.7 H (<1.0) mg/dL Assessment and Plan Assessment: Reactive airway disease, differential diagnosis asthma Obesity Hypertension and tachycardia present on admission could be related to withdrawal symptoms Mildly elevated D-dimer with negative CT of the chest for PE Plan: Continue with IV Solu-Medrol 60 mg On normal saline 75 mL/h Clonidine patch 0.2 mg Nicotine patch Further recommendation based on the clinical course Continue with Protonix for GI prophylaxis Subcutaneous Lovenox for DVT prophylaxis
[2024-12-04] MEDS: MIRTAZAPINE 15 MG TAB PO SCH (20:17)
[2024-12-04] MEDS: MELATONIN 5 MG TABLET PO SCH (20:19)
[2024-12-04] MEDS: cloNIDine 0.2 MG/24HR PATCH TRANSDERM SCH (21:37)
[2024-12-04] MEDS: guaiFENesin 600 MG TABLET.ER PO SCH (22:22)
--- NOTE | 2024-12-05 07:06 | P.CNPUL ---
History of Present Illness Consult date: 12/05/24 Requesting physician: Griselda Hemphill Reason for consult: dyspnea Chief complaint: Shortness of breath and cough History of present illness: Patient is a 44-year-old female with past medical history significant for chronic ongoing tobacco dependence, hypertension, RA. Sent to the emergency department from [place] yesterday morning. Developed URI-like symptoms approximately 1 week ago, including: rhinorrhea, headaches, persistent mostly nonproductive cough, low-grade fevers. Treated outpatient with Z-Pablo. Symptoms improved but then worsened, and has developed some shortness of breath, chest congestion. States she does have history of asthma, that is only exacerbated when she is sick. Does not routinely need her as needed albuterol rescue inhaler. She also has seasonal allergies which she uses Zyrtec to control. She does smoke approximately 1 pack/day. Was at [facility] rehab facility for crack cocaine use. D-dimer was elevated at 0.79. She is currently sitting up in bed, on 2 L/min nasal cannula. Has a dry persistent cough. Complaining of some lower bilateral chest pain that, only with coughing. Chest CTA done arrival did not show any obvious central pulmonary embolism, no noted acute parenchymal process noted. Viral screen was negative for influenza, RSV, COVID. CBC: WBC count 13.1, hemoglobin 14, platelets 306. CMP is unremarkable, electrolytes WDL, creatinine 0.6. Troponin less than 0.012. Procalcitonin level at 0.04. Current vitals: Temperature 98.9 F, heart rate 107 bpm, blood pressure 155/84 mmHg, nontachypneic, on 2 L/min nasal cannula with an SpO2 of 97%. Review of Systems Constitutional: Reports chills, Reports fatigue, Reports fever, Reports poor appetite, Denies sweats, Denies weight gain, Denies weight loss Ears, nose, mouth and throat: Reports headache, Reports nasal congestion, Reports nasal discharge, Reports post-nasal drip, Denies sinus pain, Denies sinus pressure, Denies sore throat Cardiovascular: Denies chest pain, Denies leg edema, Denies lightheadedness, Denies orthopnea, Denies palpitations, Denies paroxysmal nocturnal dyspnea, Denies syncope Respiratory: Reports congestion, Reports cough, Reports dyspnea, Reports pain on inspiration, Reports wheezing, Denies cough with sputum, Denies excessive sputum, Denies home oxygen Gastrointestinal: Reports loss of appetite, Reports nausea, Denies abdominal pain, Denies constipation, Denies diarrhea, Denies vomiting Genitourinary: Denies dysuria Musculoskeletal: Denies limitation of motion Integumentary: Denies rash Neurological: Denies seizures, Denies syncope Psychiatric: Denies anxiety, Denies depression Allergic/Immunologic: Reports seasonal allergies, Reports wheezing Past Medical History Past Medical History: Rheumatoid Arthritis (RA) Additional Past Medical History / Comment(s): RLS. Spherotosis. Migraines. Low Iron History of Any Multi-Drug Resistant Organisms: MRSA Date of last positivie culture/infection: 2009 MDRO Source:: left butt cheek Past Surgical History: Section, Hysterectomy Additional Past Surgical History / Comment(s): C Section x2 Past Anesthesia/Blood Transfusion Reactions: No Reported Reaction Past Psychological History: ADD/ADHD, Anxiety, PTSD Smoking Status: Current every day smoker Past Alcohol Use History: Rare Past Drug Use History: Cocaine, Heroin, Marijuana Additional Drug Use History / Comment(s): Patient state she was 8 months clean from cocaine and crack cocaine, boyfriend kicked her out of home and she went on a "12 hour hi." Has been at [facility] since. Medications and Allergies Home Medications Medication Instructions Recorded Confirmed Type Acetaminophen Tab [Tylenol] 650 mg PO Q4H PRN 12/04/24 12/04/24 History Albuterol Nebulized [Ventolin 2.5 mg INHALATION RT-Q4H PRN 12/04/24 12/04/24 History Nebulized] Calcium Phos/D3/Magnesium/Zinc 1 tab PO TID PRN 12/04/24 12/04/24 History [Kcqnbmi-Ocf-Yvvp-Vitamin D3] Chlorpheniramine Maleate 4 mg PO Q4H PRN 12/04/24 12/04/24 History [Chlor-Trimeton] Ibuprofen [Motrin Ib] 600 mg PO Q6H PRN 12/04/24 12/04/24 History Icy Hot 1 applic TOPICAL DIRECTED PRN 12/04/24 12/04/24 History Melatonin 10 mg PO HS 12/04/24 12/04/24 History Mirtazapine [Remeron] 15 mg PO HS 12/04/24 12/04/24 History Multivitamins, Thera [Multivitamin 1 tab PO DAILY 12/04/24 12/04/24 History (formulary)] Thiamine [Vitamin B-1] 100 mg PO DAILY 12/04/24 12/04/24 History amLODIPine [Norvasc] 5 mg PO DAILY 12/04/24 12/04/24 History guaiFENesin [guaiFENesin Oral 10 mg PO Q4H PRN 12/04/24 12/04/24 History Solution] ondansetron HCL [Zofran] 8 mg PO Q6H PRN 12/04/24 12/04/24 History rOPINIRole HCL [Requip] 5 mg PO BID 12/04/24 12/04/24 History Allergies Allergy/AdvReac Type Severity Reaction Status Date / Time lorazepam [From Ativan] AdvReac Hallucinations Verified 12/04/24 14:49 & aggressive prochlorperazine AdvReac Hallucinations Verified 12/04/24 14:49 [From Compazine] & aggressive TIDE & DIAL Allergy Rash/Hives Uncoded 12/04/24 15:02 Physical Exam Vitals: Vital Signs Temp Pulse Pulse Resp BP BP Pulse Ox 12/05/24 01:33 98.9 F 107 H 16 155/84 97 12/04/24 22:45 98.2 F 108 H 20 169/96 95 12/04/24 21:39 124 H 12/04/24 21:34 121 H 12/04/24 21:00 112 H 22 166/82 94 L 12/04/24 20:00 108 H 20 92 L 12/04/24 18:00 116 H 22 186/92 91 L 12/04/24 17:50 186/92 12/04/24 17:22 120 H 12/04/24 17:11 120 H 12/04/24 17:02 101 H 18 199/92 12/04/24 17:00 20 12/04/24 16:53 113 H 26 H 199/98 94 L 12/04/24 16:00 110 H 15 196/99 91 L 12/04/24 15:00 105 H 22 89 L 12/04/24 14:00 98 16 87 L 12/04/24 13:00 93 17 90 L 12/04/24 12:07 106 H 20 97 12/04/24 11:55 86 12/04/24 11:50 99 12/04/24 11:45 84 12/04/24 10:07 98.1 F 104 H 20 188/111 94 L Intake and Output 12/04/24 12/04/24 12/05/24 14:59 22:59 06:59 Other: Weight 145.15 kg 145.15 kg GENERAL EXAM: Alert, 44-year-old white obese female, sitting up in bed, persistent dry cough, fairly comfortable in no apparent distress. HEAD: Normocephalic and atraumatic EYES: Normal reaction of pupils, equal size. NOSE: Clear with pink turbinates. THROAT: No erythema or exudates. NECK: No masses, no JVD. CHEST: No chest wall deformity. LUNGS: Equal air entry with no crackles, wheeze, rhonchi or dullness. On 2 L/m in nasal cannula. No conversational dyspnea or accessory muscle use.. CVS: S1 and S2 normal with no audible murmur, regular rhythm. No extra heart sounds ABDOMEN: No hepatosplenomegaly, active bowel sounds, no guarding or rigidity. SPINE: No scoliosis or deformity SKIN: No rashes CENTRAL NERVOUS SYSTEM: No focal deficits, tone is normal in all 4 extremities. EXTREMITIES: There is no peripheral edema, clubbing, or cyanosis. Peripheral pulses are intact. Results - Laboratory Findings CBC and BMP: 12/04/24 10:32 12/04/24 10:32 PT/INR, D-dimer PT 10.4 sec (10.0-12.5) 12/04/24 10:32 INR 0.9 (<1.2) 12/04/24 10:32 D-Dimer 0.79 mg/L FEU (<0.60) H 12/04/24 10:32 Abnormal lab findings: Abnormal Labs 12/04/24 12/04/24 12/04/24 10:32 10:32 10:32 WBC 13.1 H Neutrophils # 9.8 H D-Dimer 0.79 H Glucose 124 H C-Reactive Protein 12/04/24 10:32 WBC Neutrophils # D-Dimer Glucose C-Reactive Protein 1.7 H - Diagnostic Findings Chest x-ray: image reviewed CT scan - chest: image reviewed Assessment and Plan Assessment: Possible acute viral URI/bronchitis, CT of the chest does not show any pulmonary embolism, no acute parenchymal process. Procalcitonin level was low. Viral screen negative for influenza, RSV, COVID. Exacerbation of mild intermittent asthma Acute dyspnea, secondary to above Hypertension History of polysubstance abuse, crack cocaine addiction, was rehabbing at [facility] facility History of asthma History of seasonal allergies Chronic ongoing tobacco smoker, smokes 1 pack/day Morbid obesity, with a BMI of 40.7 kg/m Plan: Patient's medications, labs, imaging reviewed Currently on supplemental oxygen, may wean, maintain SpO2 above 92% or greater Continue supportive care Continue as needed bronchodilators Continue Robitussin as antitussive Currently receiving IV steroids Smoking cessation counseling performed greater than 3 minutes Currently has nicotine patch on Will continue to follow I have personally seen and examined the patient, performed the documentation and the assessment and plan as written. Number of minutes spent on the visit:20 Joint evaluation that was done with the nurse practitioner. This evaluation was done more than 30 minutes. In summary, the patient is hospitalized for symptoms of bronchitis. CAT scan of the chest showed no acute abnormalities. Procalcitonin level is not elevated and the viral screen was negative. She may have an underlying asthmatic component but seems to be exacerbated at this point in time. Hospitalized for bronchodilators systemic steroid treatment. Smoking cessation counseling was done. Fully agree on the above management. Will continue to follow. Noted the patient is morbidly obese with a BMI of 48. The patient also has history of polysubstance abuse including crack cocaine addiction and the patient was rehabilitating at [facility] Time with Patient: Greater than 30
[2024-12-05] MEDS: THIAMINE 100 MG TAB PO SCH (08:35)
[2024-12-05] MEDS: PANTOPRAZOLE 40 MG/10 ML VIAL IV SCH (08:36)
[2024-12-05] MEDS: amLODIPine 5 MG TAB PO SCH (08:36)
[2024-12-05] MEDS: MULTIVITAMINS, THERA 1 EACH TAB PO SCH (08:36)
[2024-12-05 09:02] LABS: Basophils # (A) 0.04 X 10*3/uL (0.00-0.10); Basophils % (A) 0.3 %; Eosinophils # (A) 0 X 10*3/uL (0.04-0.35); Eosinophils % (A) 0 %; HCT 41.6 % (37.2-46.3); HGB 13.4 g/dL (12.0-15.0); Lymphocytes # (A) 0.85 X 10*3/uL (0.90-5.00); Lymphocytes % (A) 7.2 %; MCHC 32.2 g/dL (32.0-37.0); MCV 93.1 FL (80.0-97.0); Mean Platelet Volume 10.5 FL (9.5-12.2); Monocytes # (A) 0.13 X 10*3/uL (0.20-1.00); Monocytes % (A) 1.1 %; NRBC Per 100 WBC 0 X 10*3/uL (0.00-0.01); Neutrophils # (A) 10.55 X 10*3/uL (1.80-7.70); Neutrophils % (A) 89.4 %; Platelet Count 316 X 10*3/uL (140-440); RBC 4.47 X 10*6/uL (4.10-5.20); RDW 12.5 % (11.5-14.5); WBC 11.81 X 10*3/uL (4.50-10.00)
[2024-12-05 09:05] LABS: Blood Urea Nitrogen 12.9 mg/dL (9.0-27.0); Carbon Dioxide 21.8 mmol/L (21.6-31.8); Chloride 102 mmol/L (96-109); Glucose 289 mg/dL (70-110); Potassium 4.8 mmol/L (3.5-5.5); Sodium 139 mmol/L (135-145)
[2024-12-05 09:06] LABS: Calcium 9.2 mg/dL (8.7-10.3)
--- NOTE | 2024-12-05 15:31 | P.PN ---
Subjective Progress Note Date: 12/05/24 Patient is a pleasant 44 years old female who was sent from [place] hide pneumonia Patient was sitting in bed stating that while she was at [place] she felt sick and she received pneumonia treatment there with Z-Pablo which was on by Sunday and Sunday she was feeling better, however on Sunday she relapsed and she became worse, more short of breath that even breath treatment was not wo rking for her and she was coughing more. She has runny nose, little headache. Sometimes coughs to the degree that she vomits after that Her cough is so bad that it hurts her upper abdomen with rib cage hurting She has little diarrhea but walking fine She smokes 1 pack/day and she was counseled to quit and states she will quit the last 7 days Rarely she drinks alcohol Patient states that she used to use cocaine and she quit 8 months ago. But states that she relapsed lately and that is why she went to [place] She states she does not have PCP but recently she made an appointment with abi oshea doctor connected to [facility] that intends to follow-up with upon discharge Patient is afebrile hemodynamically stable both blood pressure and heart rate on the high side with a blood pressure 188/111 and slightly tachypneic heart rate goes up sometimes 120 She has mild leukocytosis with 13.1 D-dimer was mildly elevated at 7.9 EKG sinus rhythm at [address]-T changes CT of the chest is negative for acute pulmonary embolism but was there was limited quality Chest x-ray showed no acute cardiopulmonary process 12/05. Patient seen and examined. Complaining of wheezing. Complaining shortness of breath on exertion REVIEW OF SYSTEMS: CONSTITUTIONAL: No fever, no malaise,. CARDIOVASCULAR: No chest pain, no palpitations, no syncope. PULMONARY: Mentioned above GASTROINTESTINAL: No diarrhea, no nausea, no vomiting, no abdominal pain. NEUROLOGICAL: No headaches, no weakness, PHYSICAL EXAMINATION: GENERAL: The patient is alert and oriented x3, not in any acute distress. Well developed, well nourished. HEENT: Pupils are round and equally reacting to light. EOMI. No scleral icterus. No conjunctival pallor. Normocephalic, atraumatic. No pharyngeal erythema. No thyromegaly. CARDIOVASCULAR: S1 and S2 present. No murmurs, rubs, or gallops. PULMONARY: Coarse breath sound bilaterally, expiratory wheeze audible ABDOMEN: Soft, nontender, nondistended, normoactive bowel sounds. No palpable organomegaly. MUSCULOSKELETAL: No joint swelling or deformity. EXTREMITIES: No cyanosis, clubbing, or pedal edema. NEUROLOGICAL: Gross neurological examination did not reveal any focal deficits. SKIN: No rashes. Assessment and plan Acute viral bronchitis Acute exacerbation mild intermittent asthma Hypertension and tachycardia present on admission could be related to withdrawal symptoms Mildly elevated D-dimer with negative CT of the chest for PE History of polysubstance abuse, crack cocaine addiction, [facility] History of asthma History of seasonal allergies Chronic ongoing tobacco smoker, smokes 1 pack/day Morbid obesity, with a BMI of 40.7 kg/m Monitor vital signs Monitor CBC Monitor CMP Aggressive bronchopulmonary hygiene Continue breathing treatments Continue IV Solu-Medrol Patient counseled detail regarding smoking cessation, nicotine replacement ordered Continue Norvasc Continue clonidine Pulmonary following Labs and medication were reviewed.. Continue same treatment. Continue with symptomatic treatment. Resume home medication. Monitor labs and vitals. DVT and GI prophylaxis. Further recommendations as per clinical course of the patient Dictation was produced using [employer] dictation software. please excuse any grammatical, word or spelling errors. Objective - Vital Signs Vital signs: Vital Signs Temp 97.7 F 12/05/24 07:00 Pulse 106 H 12/05/24 09:42 Resp 18 12/05/24 07:00 BP 185/105 12/05/24 07:00 Pulse Ox 95 12/05/24 09:34 FiO2 Intake & Output 12/04/24 12/05/24 12/05/24 18:59 06:59 18:59 Intake Total 480 Balance 480 Weight 145.15 kg 145.15 kg Intake: Oral 480 Other: # Voids 1 - Labs CBC & Chem 7: 12/05/24 03:28 12/05/24 03:28 Labs: Abnormal Lab Results - Last 24 Hours (Table) 12/04/24 12/04/24 12/04/24 Range/Units 10:32 10:32 10:32 WBC 13.1 H (3.8-10.6) k/uL Immature Gran # (0.00-0.04) X 10*3/uL Neutrophils # 9.8 H (1.3-7.7) k/uL Lymphocytes # (0.90-5.00) X 10*3/uL Monocytes # (0.20-1.00) X 10*3/uL Eosinophils # (0.04-0.35) X 10*3/uL D-Dimer 0.79 H (<0.60) mg/L FEU Anion Gap (4.00-12.00) mmol/L BUN/Creatinine Ratio (12.00-20.00) Ratio Glucose 124 H (74-99) mg/dL C-Reactive Protein (<1.0) mg/dL TSH (0.350-5.500) UIU/ML 12/04/24 12/05/24 12/05/24 Range/Units 10:32 03:28 03:28 WBC 11.81 H (3.8-10.6) k/uL Immature Gran # 0.24 H (0.00-0.04) X 10*3/uL Neutrophils # 10.55 H (1.3-7.7) k/uL Lymphocytes # 0.85 L (0.90-5.00) X 10*3/uL Monocytes # 0.13 L (0.20-1.00) X 10*3/uL Eosinophils # 0 L (0.04-0.35) X 10*3/uL D-Dimer (<0.60) mg/L FEU Anion Gap 15.20 H (4.00-12.00) mmol/L BUN/Creatinine Ratio 21.50 H (12.00-20.00) Ratio Glucose 289 H (74-99) mg/dL C-Reactive Protein 1.7 H (<1.0) mg/dL TSH 0.259 L (0.350-5.500) UIU/ML Microbiology - Last 24 Hours (Table) 12/04/24 15:15 Gram Stain - Preliminary Sputum
[2024-12-05] MEDS: NICOTINE 21MG/24HR PATCH TRANSDERM SCH (17:23)
--- NOTE | 2024-12-06 12:58 | P.PN ---
Subjective Progress Note Date: 12/06/24 Patient is a pleasant 44 years old female who was sent from [place] hide pneumonia Patient was sitting in bed stating that while she was at [place] she felt sick and she received pneumonia treatment there with Z-Pablo which was on by Sunday and Sunday she was feeling better, however on Sunday she relapsed and she became worse, more short of breath that even breath treatment was not wo rking for her and she was coughing more. She has runny nose, little headache. Sometimes coughs to the degree that she vomits after that Her cough is so bad that it hurts her upper abdomen with rib cage hurting She has little diarrhea but walking fine She smokes 1 pack/day and she was counseled to quit and states she will quit the last 7 days Rarely she drinks alcohol Patient states that she used to use cocaine and she quit 8 months ago. But states that she relapsed lately and that is why she went to [place] She states she does not have PCP but recently she made an appointment with abi oshea doctor connected to [facility] that intends to follow-up with upon discharge Patient is afebrile hemodynamically stable both blood pressure and heart rate on the high side with a blood pressure 188/111 and slightly tachypneic heart rate goes up sometimes 120 She has mild leukocytosis with 13.1 D-dimer was mildly elevated at 7.9 EKG sinus rhythm at [address]-T changes CT of the chest is negative for acute pulmonary embolism but was there was limited quality Chest x-ray showed no acute cardiopulmonary process 12/05. Patient seen and examined. Complaining of wheezing. Complaining shortness of breath on exertion 12/06. Patient seen and examined. Blood pressure is elevated could be secondary to steroids. Dose of Norvasc increased to 10 mg. Shortness of breath is improved REVIEW OF SYSTEMS: CONSTITUTIONAL: No fever, no malaise,. CARDIOVASCULAR: No chest pain, no palpitations, no syncope. PULMONARY: Mentioned above GASTROINTESTINAL: No diarrhea, no nausea, no vomiting, no abdominal pain. NEUROLOGICAL: No headaches, no weakness, PHYSICAL EXAMINATION: GENERAL: The patient is alert and oriented x3, not in any acute distress. Well developed, well nourished. HEENT: Pupils are round and equally reacting to light. EOMI. No scleral icterus. No conjunctival pallor. Normocephalic, atraumatic. No pharyngeal erythema. No thyromegaly. CARDIOVASCULAR: S1 and S2 present. No murmurs, rubs, or gallops. PULMONARY: Coarse breath sound bilaterally, expiratory wheeze audible ABDOMEN: Soft, nontender, nondistended, normoactive bowel sounds. No palpable organomegaly. MUSCULOSKELETAL: No joint swelling or deformity. EXTREMITIES: No cyanosis, clubbing, or pedal edema. NEUROLOGICAL: Gross neurological examination did not reveal any focal deficits. SKIN: No rashes. Assessment and plan Acute viral bronchitis Acute exacerbation mild intermittent asthma Hypertension and tachycardia present on admission could be related to withdrawal symptoms Mildly elevated D-dimer with negative CT of the chest for PE History of polysubstance abuse, crack cocaine addiction, [facility] History of asthma History of seasonal allergies Chronic ongoing tobacco smoker, smokes 1 pack/day Morbid obesity, with a BMI of 40.7 kg/m Monitor vital signs Monitor CBC Monitor CMP Aggressive bronchopulmonary hygiene Continue breathing treatments Continue IV Solu-Medrol Dose of Norvasc increased to 10 mg daily Patient counseled detail regarding smoking cessation, nicotine replacement ordered Continue Norvasc Continue clonidine Pulmonary following Labs and medication were reviewed.. Continue same treatment. Continue with symptomatic treatment. Resume home medication. Monitor labs and vitals. DVT and GI prophylaxis. Further recommendations as per clinical course of the patient Dictation was produced using [employer] dictation software. please excuse any grammatical, word or spelling errors. Objective - Vital Signs Vital signs: Vital Signs Temp 98.5 F 12/06/24 07:00 Pulse 88 12/06/24 08:00 Resp 17 12/06/24 07:00 BP 176/98 12/06/24 07:00 Pulse Ox 96 12/06/24 07:51 FiO2 Intake & Output 12/05/24 12/06/24 12/06/24 18:59 06:59 18:59 Intake Total 1551 Balance 1551 Intake: Oral 1551 Other: Voiding Method Toilet # Voids 3 1 - Labs CBC & Chem 7: 12/05/24 03:28 12/05/24 03:28 Labs: Microbiology - Last 24 Hours (Table) 12/04/24 15:15 Gram Stain - Preliminary Sputum Sputum Culture - Preliminary
--- NOTE | 2024-12-06 14:35 | P.PN ---
Subjective Progress Note Date: 12/06/24 Patient is a 44-year-old female with past medical history significant for chronic ongoing tobacco dependence, hypertension, RA. Sent to the emergency department from [place] yesterday morning. Developed URI-like symptoms approximately 1 week ago, including: rhinorrhea, headaches, persistent mostly nonproductive cough, low-grade fevers. Treated outpatient with Z-Pablo. Symptoms improved but then worsened, and has developed some shortness of breath, chest congestion. States she does have history of asthma, that is only exacerbated when she is sick. Does not routinely need her as needed albuterol rescue inhaler. She also has seasonal allergies which she uses Zyrtec to control. She does smoke approximately 1 pack/day. Was at [place] rehab facility for crack cocaine use. D-dimer was elevated at 0.79. She is currently sitting up in bed, on 2 L/min nasal cannula. Has a dry persistent cough. Complaining of some lower bilateral chest pain that, only with coughing. Chest CTA done arrival did not show any obvious central pulmonary embolism, no noted acute parenchymal process noted. Viral screen was negative for influenza, RSV, COVID. CBC: WBC count 13.1, hemoglobin 14, platelets 306. CMP is unremarkable, electrolytes WDL, creatinine 0.6. Troponin less than 0.012. Procalcitonin level at 0.04. Current vitals: Temperature 98.9 F, heart rate 107 bpm, blood pressure 155/84 mmHg, nontachypneic, on 2 L/min nasal cannula with an SpO2 of 97%. On 12/06/2024, the patient is being seen for a follow-up. Slightly improved compared to yesterday. Less mucus passing. Less wheezy. No fever. No chills. No night sweats. Remains on bronchodilators. Remains on IV Solu-Medrol. Remains on oxygen 2 L/min nasal cannula with pulse ox of 95%. No recent blood work from today. Will continue same treatment for now as the patient continues to improve. Objective - Vital Signs Vital signs: Vital Signs Temp 98.5 F 12/06/24 14:11 Pulse 99 12/06/24 14:11 Resp 16 12/06/24 14:11 BP 168/93 12/06/24 14:11 Pulse Ox 95 12/06/24 14:11 FiO2 Intake & Output 12/05/24 12/06/24 12/06/24 18:59 06:59 18:59 Intake Total 1551 222 Balance 1551 222 Intake: Oral 1551 222 Other: Voiding Method Toilet # Voids 3 1 3 - Exam GENERAL EXAM: Alert, 44-year-old white obese female, sitting up in bed, persistent dry cough, fairly comfortable in no apparent distress. HEAD: Normocephalic and atraumatic EYES: Normal reaction of pupils, equal size. NOSE: Clear with pink turbinates. THROAT: No erythema or exudates. NECK: No masses, no JVD. CHEST: No chest wall deformity. LUNGS: Equal air entry with no crackles, wheeze, rhonchi or dullness. On 2 L/min nasal cannula. No conversational dyspnea or accessory muscle use.. CVS: S1 and S2 normal with no audible murmur, regular rhythm. No extra heart sounds ABDOMEN: No hepatosplenomegaly, active bowel sounds, no guarding or rigidity. SPINE: No scoliosis or deformity SKIN: No rashes CENTRAL NERVOUS SYSTEM: No focal deficits, tone is normal in all 4 extremities. EXTREMITIES: There is no peripheral edema, clubbing, or cyanosis. Peripheral pulses are intact. - Labs CBC & Chem 7: 12/05/24 03:28 12/05/24 03:28 Labs: Microbiology - Last 24 Hours (Table) 12/04/24 15:15 Gram Stain - Final Sputum Sputum Culture - Final Assessment and Plan Assessment: Possible acute viral URI/bronchitis, CT of the chest does not show any pulmonary embolism, no acute parenchymal process. Procalcitonin level was low. Viral screen negative for influenza, RSV, COVID. Exacerbation of mild intermittent asthma Acute dyspnea, secondary to above Hypertension History of polysubstance abuse, crack cocaine addiction, [facility] History of asthma History of seasonal allergies Chronic ongoing tobacco smoker, smokes 1 pack/day Morbid obesity, with a BMI of 40.7 kg/m Plan: Clinically improving We will continue same treatment Continue supportive care Continue as needed bronchodilators Continue Robitussin as antitussive Currently receiving IV steroids at the same doses Smoking cessation counseling performed greater than 3 minutes Currently has nicotine patch on Will continue to follow
[2024-12-07 07:26] VITALS: RESP 18; TEMP 97.9
[2024-12-07] MEDS: amLODIPine 10 MG TAB PO SCH (08:19)
[2024-12-07] MEDS: hydrALAZINE HCL 20 MG/ML 1 ML VIAL IVP PRN (08:19)
--- NOTE | 2024-12-07 12:32 | P.DS ---
Providers Date of admission: 12/04/24 14:09 Expected date of discharge: 12/07/24 Attending physician: Iglesia Gallo Consults: 12/04/24 14:12 Consult Physician Urgent Consulting Provider: Pedro Pop Consult Reason/Comments: Reactive airway disease Do you want consulting provider notified?: Yes Primary care physician: Stated None Hospital Course: Discharge diagnoses; Acute viral bronchitis Acute exacerbation mild intermittent asthma Hypertension and tachycardia present on admission could be related to withdrawal symptoms Mildly elevated D-dimer with negative CT of the chest for PE History of polysubstance abuse, crack cocaine addiction, was rehabbing at [facility] History of asthma History of seasonal allergies Chronic ongoing tobacco smoker, smokes 1 pack/day Morbid obesity, with a BMI of 40.7 kg/m Hospital course; Patient is a pleasant 44 years old female who was sent from [facility] hide pneumonia Patient was sitting in bed stating that while she was at [facility] she felt sick and she received pneumonia treatment there with Z-Pablo which was on by Sunday and Sunday she was feeling better, however on Sunday she relapsed and she became worse, more short of breath that even breath treatment was not working for her and she was coughing more. She has runny nose, little headache. Sometimes coughs to the degree that she vomits after that Her cough is so bad that it hurts her upper abdomen with rib cage hurting She has little diarrhea but walking fine She smokes 1 pack/day and she was counseled to quit and states she will quit the last 7 days Rarely she drinks alcohol Patient states that she used to use cocaine and she quit 8 months ago. But states that she relapsed lately and that is why she went to [facility] She states she does not have PCP but recently she made an appointment with primary doctor connected to [facility] that intends to follow-up with upon discharge Patient is afebrile hemodynamically stable both blood pressure and heart rate on the high side with a blood pressure 188/111 and slightly tachypneic heart rate goes up sometimes 120 She has mild leukocytosis with 13.1 D-dimer was mildly elevated at 7.9 EKG sinus rhythm at [address]-T changes CT of the chest is negative for acute pulmonary embolism but was there was limited quality Chest x-ray showed no acute cardiopulmonary process 12/05. Patient seen and examined. Complaining of wheezing. Complaining shortness of breath on exertion 12/06. Patient seen and examined. Blood pressure is elevated could be secondary to steroids. Dose of Norvasc increased to 10 mg. Shortness of breath is improved 12/07. Patient seen and examined. States she is doing much better. Patient has been weaned off the oxygen. Blood pressure better controlled. Pulmonology cleared the patient for discharge. Being discharged on tapering dose of prednisone PHYSICAL EXAMINATION: GENERAL: The patient is alert and oriented x3, not in any acute distress. Well developed, well nourished. HEENT: Pupils are round and equally reacting to light. EOMI. No scleral icterus. No conjunctival pallor. Normocephalic, atraumatic. No pharyngeal erythema. No thyromegaly. CARDIOVASCULAR: S1 and S2 present. No murmurs, rubs, or gallops. PULMONARY coarse breath sound bilaterally, no wheezing or crackles. ABDOMEN: Soft, nontender, nondistended, normoactive bowel sounds. No palpable organomegaly. MUSCULOSKELETAL: No joint swelling or deformity. EXTREMITIES: No cyanosis, clubbing, or pedal edema. NEUROLOGICAL: Gross neurological examination did not reveal any focal deficits. SKIN: No rashes. Dictation was produced using [employer] dictation software. please excuse any grammatical, word or spelling errors. Plan - Discharge Summary Discharge Rx Participant: No New Discharge Prescriptions: New cloNIDine 0.2 MG/24HR PATCH [Catapres-TTS] 1 patch TRANSDERM Q7D 30 Days #4 p atch guaiFENesin [Mucinex] 600 mg PO Q12HR 7 Days #14 tab amLODIPine [Norvasc] 10 mg PO DAILY 30 Days #30 tab Albuterol Inhaler [Ventolin Hfa Inhaler] 2 puff INHALATION Q6H PRN #1 each PRN Reason: Shortness Of Breath Or Wheezing predniSONE 10 mg PO DAILY 8 Days #20 tab NS Continue ondansetron HCL [Zofran] 8 mg PO Q6H PRN PRN Reason: Nausea Thiamine [Vitamin B-1] 100 mg PO DAILY Multivitamins, Thera [Multivitamin (formulary)] 1 tab PO DAILY Mirtazapine [Remeron] 15 mg PO HS Icy Hot 1 applic TOPICAL DIRECTED PRN PRN Reason: Pain Chlorpheniramine Maleate [Chlor-Trimeton] 4 mg PO Q4H PRN PRN Reason: Allergy Symptoms Calcium Phos/D3/Magnesium/Zinc [Scitvlm-Kll-Axas-Vitamin D3] 1 tab PO TID PRN PRN Reason: cramps Albuterol Nebulized [Ventolin Nebulized] 2.5 mg INHALATION RT-Q4H PRN PRN Reason: Shortness Of Breath Acetaminophen Tab [Tylenol] 650 mg PO Q4H PRN PRN Reason: Pain Ibuprofen [Motrin Ib] 600 mg PO Q6H PRN PRN Reason: Pain Melatonin 10 mg PO HS guaiFENesin [guaiFENesin Oral Solution] 10 mg PO Q4H PRN PRN Reason: Congestion rOPINIRole HCL [Requip] 5 mg PO BID Discontinued amLODIPine [Norvasc] 5 mg PO DAILY Discharge Medication List Acetaminophen Tab [Tylenol] 650 mg PO Q4H PRN 12/04/24 [History] Albuterol Nebulized [Ventolin Nebulized] 2.5 mg INHALATION RT-Q4H PRN 12/04/24 [History] Calcium Phos/D3/Magnesium/Zinc [Bdjkkui-Pkq-Jesg-Vitamin D3] 1 tab PO TID PRN 12/04/24 [History] Chlorpheniramine Maleate [Chlor-Trimeton] 4 mg PO Q4H PRN 12/04/24 [History] Ibuprofen [Motrin Ib] 600 mg PO Q6H PRN 12/04/24 [History] Icy Hot 1 applic TOPICAL DIRECTED PRN 12/04/24 [History] Melatonin 10 mg PO HS 12/04/24 [History] Mirtazapine [Remeron] 15 mg PO HS 12/04/24 [History] Multivitamins, Thera [Multivitamin (formulary)] 1 tab PO DAILY 12/04/24 [History] Thiamine [Vitamin B-1] 100 mg PO DAILY 12/04/24 [History] guaiFENesin [guaiFENesin Oral Solution] 10 mg PO Q4H PRN 12/04/24 [History] ondansetron HCL [Zofran] 8 mg PO Q6H PRN 12/04/24 [History] rOPINIRole HCL [Requip] 5 mg PO BID 12/04/24 [History] Albuterol Inhaler [Ventolin Hfa Inhaler] 2 puff INHALATION Q6H PRN #1 each 12/07/24 [Rx] amLODIPine [Norvasc] 10 mg PO DAILY 30 Days #30 tab 12/07/24 [Rx] cloNIDine 0.2 MG/24HR PATCH [Catapres-TTS] 1 patch TRANSDERM Q7D 30 Days #4 patch 12/07/24 [Rx] guaiFENesin [Mucinex] 600 mg PO Q12HR 7 Days #14 tab 12/07/24 [Rx] predniSONE 10 mg PO DAILY 8 Days #20 tab NS 12/07/24 [Rx] Follow up Appointment(s)/Referral(s): [facility] [NON-STAFF] - 1-2 days [facility] [NON-STAFF] - 1-2 days None,Stated [Primary Care Provider] - 1-2 days Patient Instructions/Handouts: Reactive Airways Disease (DC) Discharge/Stand Alone Forms: Area PCPs Discharge Disposition: HOME SELF-CARE
[2024-12-07 12:34] VITALS: PULSE 88
[2024-12-07] MEDS: hydrOXYzine HCL 25 MG TAB PO STA (13:03)
--- NOTE | 2024-12-07 13:38 | P.PN ---
Subjective Progress Note Date: 12/07/24 Patient is a 44-year-old female with past medical history significant for chronic ongoing tobacco dependence, hypertension, RA. Sent to the emergency department from [place] yesterday morning. Developed URI-like symptoms approximately 1 week ago, including: rhinorrhea, headaches, persistent mostly nonproductive cough, low-grade fevers. Treated outpatient with Z-Pablo. Symptoms improved but then worsened, and has developed some shortness of breath, chest congestion. States she does have history of asthma, that is only exacerbated when she is sick. Does not routinely need her as needed albuterol rescue inhaler. She also has seasonal allergies which she uses Zyrtec to control. She does smoke approximately 1 pack/day. Was at [place] [facility] facility for crack cocaine use. D-dimer was elevated at 0.79. She is currently sitting up in bed, on 2 L/min nasal cannula. Has a dry persistent cough. Complaining of some lower bilateral chest pain that, only with coughing. Chest CTA done arrival did not show any obvious central pulmonary embolism, no noted acute parenchymal process noted. Viral screen was negative for influenza, RSV, COVID. CBC: WBC count 13.1, hemoglobin 14, platelets 306. CMP is unremarkable, electrolytes WDL, creatinine 0.6. Troponin less than 0.012. Procalcitonin level at 0.04. Current vitals: Temperature 98.9 F, heart rate 107 bpm, blood pressure 155/84 mmHg, nontachypneic, on 2 L/min nasal cannula with an SpO2 of 97%. On 12/06/2024, the patient is being seen for a follow-up. Slightly improved compared to yesterday. Less mucus passing. Less wheezy. No fever. No chills. No night sweats. Remains on bronchodilators. Remains on IV Solu-Medrol. Remains on oxygen 2 L/min nasal cannula with pulse ox of 95%. No recent blood work from today. Will continue same treatment for now as the patient continues to improve. On 12/07/2024, the patient is being seen for a follow-up. Doing much better. She is currently on room air oxygen with a pulse ox of 93%. Less mucus passing and wheezy. No new complaints being reported by the patient. Labs not repeated today. Procalcitonin level was 0.04. The patient remains on DuoNeb updrafts, IV Solu-Medrol and the patient is being considered for discharge today on a prednisone burst taper and albuterol HFA addition to Mucinex for cough and congestion. Objective - Vital Signs Vital signs: Vital Signs Temp 97.9 F 12/07/24 07:00 Pulse 86 12/07/24 08:30 Resp 18 12/07/24 07:00 BP 180/93 12/07/24 08:16 Pulse Ox 97 12/07/24 07:00 FiO2 Intake & Output 12/06/24 12/07/24 12/07/24 18:59 06:59 18:59 Intake Total 444 Balance 444 Intake: Oral 444 Other: Voiding Method Toilet Toilet Toilet # Voids 3 4 - Exam GENERAL EXAM: Alert, 44-year-old white obese female, sitting up in bed, persistent dry cough, fairly comfortable in no apparent distress. HEAD: Normocephalic and atraumatic EYES: Normal reaction of pupils, equal size. NOSE: Clear with pink turbinates. THROAT: No erythema or exudates. NECK: No masses, no JVD. CHEST: No chest wall deformity. LUNGS: Equal air entry with no crackles, wheeze, rhonchi or dullness. On room air oxygen. No conversational dyspnea or accessory muscle use.. CVS: S1 and S2 normal with no audible murmur, regular rhythm. No extra heart sounds ABDOMEN: No hepatosplenomegaly, active bowel sounds, no guarding or rigidity. SPINE: No scoliosis or deformity SKIN: No rashes CENTRAL NERVOUS SYSTEM: No focal deficits, tone is normal in all 4 extremities. EXTREMITIES: There is no peripheral edema, clubbing, or cyanosis. Peripheral pulses are intact. - Labs CBC & Chem 7: 12/05/24 03:28 12/05/24 03:28 Labs: Microbiology - Last 24 Hours (Table) 12/04/24 15:15 Gram Stain - Final Sputum Sputum Culture - Final Assessment and Plan Assessment: Possible acute viral URI/bronchitis, CT of the chest does not show any pulmonary embolism, no acute parenchymal process. Procalcitonin level was low. Viral screen negative for influenza, RSV, COVID. Clinically much improved Exacerbation of mild intermittent asthma Acute dyspnea, secondary to above Hypertension History of polysubstance abuse, crack cocaine addiction, [facility] History of asthma History of seasonal allergies Chronic ongoing tobacco smoker, smokes 1 pack/day Morbid obesity, with a BMI of 40.7 kg/m Plan: Clinically improving Currently on room air oxygen Discharge the patient home on a prednisone burst taper starting with 40 mg. Provide albuterol rescue inhaler. Continue Robitussin as antitussive Currently receiving IV steroids at the same doses Smoking cessation counseling performed greater than 3 minutes Currently has nicotine patch on Outpatient follow-up.
[2024-12-07 15:00] VITALS: BP 165/84
== END 2024-12-07 15:28 | disposition home or self-care (01) ==
LOC: EC 09:58 → 6NMEDSUR 14:09 → 4SSUR 15:40 → 6NMEDSUR 20:35
PROVIDERS: ADMIT Hospitalist; ATTEND Hospitalist
DX: J45.20 Mild intermittent asthma, uncomplicated (principal); J20.8 Acute bronchitis due to other specified organisms; I10 Essential (primary) hypertension; M06.9 Rheumatoid arthritis, unspecified; F14.20 Cocaine dependence, uncomplicated; F17.210 Nicotine dependence, cigarettes, uncomplicated; D72.829 Elevated white blood cell count, unspecified; R79.89 Other specified abnormal findings of blood chemistry; E66.01 Morbid (severe) obesity due to excess calories; Z68.42 Body mass index [BMI] 45.0-49.9, adult; Z79.899 Other long term (current) drug therapy; Z88.8 Allergy status to other drugs, medicaments and biological substances; Z91.048 Other nonmedicinal substance allergy status; Z11.52 Encounter for screening for COVID-19; Z11.59 Encounter for screening for other viral diseases; Z87.01 Personal history of pneumonia (recurrent); Z71.6 Tobacco abuse counseling
CPT/HCPCS: 96376 ×5; 96361 ×3; 96375 ×3; 96372; 96374; 99285; 36415; 94640 ×8; 94760 ×2; 93005; 85379; 84439; 80053; 80048; 84443; 83605; 83735; 84484; 85025 ×2; 85610; 85730; 86140; 84703; 87070; 87205; 84145; 87636; 71046; 71275; G0378 ×5; S4990 ×4; J0360; J3105; J1885; Q9967; J2919 ×4; J2470 ×3